=== PATIENT | female | born 1985 ===

== ENCOUNTER 2017-03-19 13:23 | Emergency (ER) | payer MEDICAID, OTHER ==
[2017-03-19 13:23] VITALS: BMI 28.1
[2017-03-19] MEDS ORDERED: Aspirin 325 mg EC Tablets PO STA (13:49)
[2017-03-19] MEDS ORDERED: Aspirin 325 mg EC Tablets PO ONE (14:16)
--- NOTE | 2017-03-19 14:18 | C.PDOC ---
History Of Present Illness 32 y/o female with past medical history of palpitations and "irregular heart rate" presents to ER with complaints of palpitations starting this morning that increase when taking deep breaths, took Tylenol 12.5 mg but no improvement. Patient states having discomfort on left chest reproducible with deep inspiration. Patient denies SOB, fever, chills, N/V/D. No other complaints at this time. Time Seen by Provider: 03/19/17 13:43 Chief Complaint (Nursing): Palpitations History Per: Patient History/Exam Limitations: no limitations Onset/Duration Of Symptoms: Hrs Severity: Mild Quality: Sharp Exacerbating Factors: None Past Medical History Reviewed: Historical Data, Nursing Documentation, Vital Signs Vital Signs: Last Vital Signs Temp 98.2 F 03/19/17 13:26 Pulse 66 03/19/17 13:26 Resp 18 03/19/17 13:26 BP 129/86 03/19/17 13:26 Pulse Ox 100 03/19/17 14:27 - Medical History PMH: Arthritis, Hyperthyroidism Surgical History: Tonsillectomy Family History: States: Unknown Family Hx - Social History Hx Tobacco Use: No Hx Alcohol Use: No Hx Substance Use: No - Immunization History Hx Tetanus Toxoid Vaccination: Yes Hx Influenza Vaccination: Yes Hx Pneumococcal Vaccination: No Review Of Systems Except As Marked, All Systems Reviewed And Found Negative. Constitutional: Negative for: Fever Cardiovascular: Positive for: Chest Pain (Left chest), Palpitations Respiratory: Negative for: Cough, Shortness of Breath Gastrointestinal: Negative for: Nausea, Vomiting, Diarrhea Skin: Negative for: Rash Psych: Negative for: Anxiety Physical Exam - Physical Exam Appears: Non-toxic, No Acute Distress Skin: Normal Color Head: Atraumatic, Normacephalic Oral Mucosa: Moist Neck: Normal ROM Chest: Symmetrical, No Tenderness, Other (Physician chaperoned by Dina (Nurse )) Respiratory: Normal Breath Sounds, No Rales, No Rhonchi, No Wheezing Extremity: Normal ROM Neurological/Psych: Oriented x3, Normal Speech, Normal Cognition ED Course And Treatment - Laboratory Results Result Diagrams: 03/19/17 14:31 03/19/17 14:31 Lab Interpretation: Normal (trop, bnp, d-dimer neg.) Urine POC: Negative ECG: Interpreted By Me ECG Interpretation: Normal Rate From EC O2 Sat by Pulse Oximetry: 100 (Room air) Pulse Ox Interpretation: Normal - Radiology CXR Interpretation: Yes: No Acute Disease Reevaluation Time: 15:58 Reassessment Condition: Improved (though with still mild discomfort L chest with deep insp) Medical Decision Making Medical Decision Making: musculoskeletal L chest discomfort Palps with h/o "abnormal rhythem" took Atenolol 12.5 PO this AM with no sig change to L chest discomfort. probably NOT new arrhythmia. Disposition Doctor Will See Patient In The: Office Counseled Patient/Family Regarding: Studies Performed, Diagnosis - Disposition Disposition: HOME/ ROUTINE Disposition Time: 15:59 Condition: GOOD - Clinical Impression Clinical Impression: Chest discomfort - PA / LIVE OUT NANNY / Resident Statement MD/DO has reviewed & agrees with the documentation as recorded. MD/DO has examined the patient and agrees with the treatment plan. - Scribe Statement The provider has reviewed the documentation as recorded by the Shanda Castillo All medical record entries made by the Shanda were at my direction and personally dictated by me. I have reviewed the chart and agree that the record accurately reflects my personal performance of the history, physical exam, medical decision making, and the department course for this patient. I have also personally directed, reviewed, and agree with the discharge instructions and disposition.
[2017-03-19 14:35] LABS: BASO % 0.5 % (0.0-2.0); EOS # 0.2 K/uL (0.0-0.7); EOS % 2.9 % (0.0-4.0); HEMATOCRIT 36.2 % (34.0-47.0); LYMPH # 1.7 K/uL (1.0-4.3); LYMPH % 25.5 % (20.0-40.0); MEAN CELL VOLUME 85.5 fL (81.0-99.0); MEAN CORPUSCULAR HEMOGLOBIN 28.3 pg (27.0-31.0); MEAN PLATELET VOLUME 7.7 fL (7.2-11.7); MONO # 0.5 K/uL (0.0-0.8); MONO % 8.1 % (0.0-10.0); RED CELL DISTRIBUTION WIDTH 14.4 % (11.5-14.5); WHITE BLOOD COUNT 6.8 K/uL (4.8-10.8)
[2017-03-19 14:58] LABS: CHLORIDE 99 mmol/L (98-107); SODIUM 137 mmol/L (132-148)
[2017-03-19 14:59] LABS: RBC URINE 4 /hpf (0-3); URINE BILIRUBIN NEGATIVE (NEGATIVE); URINE BLOOD NEGATIVE (NEGATIVE); URINE COLOR Yellow (YELLOW); URINE GLUCOSE (UA) NORMAL (Normal); URINE KETONE TRACE mg/dL (NEGATIVE); URINE LEUKOCYTE ESTERASE NEG Leu/uL (Negative); URINE PROTEIN NEGATIVE (NEGATIVE); URINE UROBILINOGEN NORMAL mg/dL (0.2-1.0); WBC URINE 1 /hpf (0-5)
[2017-03-19 15:01] LABS: ALB/GLOB RATIO 1.3 (1.0-2.1); ALKALINE PHOSPHATASE 79 U/L (38-126); ALT/SGPT 38 U/L (9-52); AST/SGOT 27 U/L (14-36); BLOOD UREA NITROGEN 13 mg/dL (7-17); CALCIUM 8.9 mg/dl (8.6-10.4); CARBON DIOXIDE 28 mmol/L (22-30); GFR AFRICAN-AMERICAN > 60; GLUCOSE,RANDOM 83 mg/dL (65-105); TOTAL PROTEIN 7.9 g/dL (6.3-8.3)
[2017-03-19 15:56] LABS: BILIRUBIN,TOTAL 0.5 mg/dL (0.2-1.3)
[2017-03-19 16:17] VITALS: BP 120/70; PULSE 56; RESP 18; TEMP 98; O2SAT 100
--- NOTE | 2017-03-19 17:22 | RAD ---
HISTORY: L chest discomfort COMPARISON: No prior. TECHNIQUE: Chest PA and lateral FINDINGS: LUNGS: No active pulmonary disease. PLEURA: No significant pleural effusion identified. No pneumothorax apparent. CARDIOVASCULAR: Normal. OSSEOUS STRUCTURES: No significant abnormalities. VISUALIZED UPPER ABDOMEN: Normal. OTHER FINDINGS: None. IMPRESSION: No active disease.
--- NOTE | 2017-03-24 15:06 | CARD ---
APPROVED REPORT EKG Measurement Heart [id number] <Conclusion> Normal sinus rhythm Normal ECG
== END 2017-03-19 16:25 | disposition home or self-care (01) ==
LOC: C.ER 13:23
DX: R07.9 Chest pain, unspecified (principal)

== ENCOUNTER 2018-12-11 12:39 | Outpatient (CLI) | payer MEDICAID | END 2018-12-11 12:40 | disposition home or self-care (01) | LOC: C.MAMMO 12:39 | DX: Z12.31 Encounter for screening mammogram for malignant neoplasm of breast (principal) ==

== ENCOUNTER 2018-12-20 12:36 | Outpatient (CLI) | payer MEDICAID | END 2018-12-20 12:37 | disposition home or self-care (01) | LOC: C.MAMMO 12:36 | DX: R92.8 Other abnormal and inconclusive findings on diagnostic imaging of breast (principal) ==

== ENCOUNTER 2019-01-31 19:18 | Emergency (ER) | payer MEDICAID ==
[2019-01-31] MEDS ORDERED: Sodium Chloride 0.9% 1,000 ML IV ONE ×2 (20:05→21:24)
[2019-01-31 20:08] LABS: SQUAMOUS EPITHIAL 14 /hpf (0-5); URINE BACTERIA MANY (<OCC); URINE BILIRUBIN NEGATIVE (NEGATIVE); URINE BLOOD 2+ (NEGATIVE); URINE CLARITY Hazy (Clear); URINE COLOR Amber (YELLOW); URINE GLUCOSE (UA) 2+ mg/dL (Normal); URINE LEUKOCYTE ESTERASE NEG Leu/uL (Negative); URINE PROTEIN 1+ mg/dL (NEGATIVE)
--- NOTE | 2019-01-31 20:19 | C.PDOC ---
History Of Present Illness 34 year old female with PMHx of anemia, reflux and DM presents to the ED c/o 1 day history of fever, dysuria, burning and itching with urination. Patient reports she has been taking Ibuprofen which breaks the fever for couple of hours and it returns, also taking Pyridium twice a day with no relief. Patient takes Metformin 500 mg twice a day for her diabetes. Patient reports she is sexually active with one male partner, last time she has intercourse was last week and it was with no protection .Patient denies nausea, vomit, diarrhea, rash, back pain, hematuria, vaginal discharge, vaginal bleeding. Time Seen by Provider: 01/31/19 19:47 Chief Complaint (Nursing): Female Genitourinary History Per: Patient History/Exam Limitations: no limitations Onset/Duration Of Symptoms: Days (1) Current Symptoms Are (Timing): Still Present Sick Contacts (Context): None Associated Symptoms: Fever Ear Symptoms: Bilateral: None Recent travel outside of the [place]: No Additional History Per: Patient Past Medical History Reviewed: Historical Data, Nursing Documentation, Vital Signs Vital Signs: Last Vital Signs Temp 103 F H 01/31/19 19:32 Pulse 126 H 01/31/19 19:32 Resp 18 01/31/19 19:32 BP 166/80 H 01/31/19 19:32 Pulse Ox 97 01/31/19 19:32 - Medical History PMH: Arthritis, Hyperthyroidism Surgical History: Tonsillectomy Family History: States: Unknown Family Hx - Social History Hx Tobacco Use: No Hx Alcohol Use: No Hx Substance Use: No - Immunization History Hx Tetanus Toxoid Vaccination: Yes Hx Influenza Vaccination: Yes Hx Pneumococcal Vaccination: No Review Of Systems Constitutional: Positive for: Fever. Negative for: Chills Cardiovascular: Negative for: Chest Pain Respiratory: Negative for: Shortness of Breath Gastrointestinal: Negative for: Nausea, Vomiting, Abdominal Pain Genitourinary: Positive for: Dysuria. Negative for: Vaginal Discharge, Vaginal Bleeding Musculoskeletal: Negative for: Back Pain Neurological: Negative for: Weakness, Numbness, Headache Physical Exam - Physical Exam Appears: Non-toxic, No Acute Distress, Other (Febrile) Skin: Normal Color, Warm, Dry Head: Atraumatic, Normacephalic Eye(s): bilateral: Normal Inspection Oral Mucosa: Moist Neck: Normal ROM, Supple Chest: Symmetrical Cardiovascular: Rhythm Regular (tachycardic) Respiratory: Normal Breath Sounds, No Rales, No Rhonchi, No Wheezing Gastrointestinal/Abdominal: Soft, Tenderness (suprapubic), No Guarding, No Rebound Back: No CVA Tenderness Extremity: Normal ROM, No Tenderness, No Swelling Neurological/Psych: Oriented x3, Normal Speech, Normal Cognition Gait: Steady ED Course And Treatment - Laboratory Results Result Diagrams: 01/31/19 20:29 01/31/19 20:29 Lab Results: Urine Color Michelle (YELLOW) 01/31/19 19:44 Urine Clarity Hazy (Clear) 01/31/19 19:44 Urine pH 7.0 (5.0-8.0) 01/31/19 19:44 Ur Specific [place] 1.018 (1.003-1.030) 01/31/19 19:44 Urine Protein 1+ mg/dL (NEGATIVE) H 01/31/19 19:44 Urine Glucose (UA) 2+ mg/dL (Normal) H 01/31/19 19:44 Urine Ketones Trace mg/dL (NEGATIVE) 01/31/19 19:44 Urine Blood 2+ (NEGATIVE) H 01/31/19 19:44 Urine Nitrate Positive (NEGATIVE) H 01/31/19 19:44 Urine Bilirubin Negative (NEGATIVE) 01/31/19 19:44 Urine Urobilinogen 4.0 mg/dL (0.2-1.0) H 01/31/19 19:44 Ur Leukocyte Esterase Neg Renetta/uL (Negative) 01/31/19 19:44 Urine WBC (Auto) 28 /hpf (0-5) H 01/31/19 19:44 Urine RBC (Auto) 61 /hpf (0-3) H 01/31/19 19:44 Ur Squamous Epith Cells 14 /hpf (0-5) H 01/31/19 19:44 Urine Bacteria Many (<OCC) H 01/31/19 19:44 O2 Sat by Pulse Oximetry: 97 (ON RA) Pulse Ox Interpretation: Normal Progress Note: Plan: - VBG. - Labs. - IV fluids. - Urine culture. - Blood culture. - UA Disposition Counseled Patient/Family Regarding: Studies Performed, Diagnosis, Need For Followup, Rx Given - Disposition Referrals: Rosi Nino MD [Medical Doctor] - Disposition: HOME/ ROUTINE Disposition Time: 23:00 Condition: STABLE Additional Instructions: FOLLOW UP WITH YOUR DOCTOR IN 1-2 DAYS DRINK PLENTY OF FLUIDS USE ANTIBIOTICS UNTIL FINISHED RETURN TO ER IF YOUR SYMPTOMS BECOME WORSE Prescriptions: Naproxen 375 mg PO BID PRN #20 tablet PRN Reason: pain Nitrofurantoin Macrocrystals [Macrobid] 1 cap PO BID #14 cap Instructions: Urinary Tract Infection, Adult (DC) Forms: [employer] (Citizen Of [place]) Print Language: ARMENIAN - POA Present On Arrival: None - Clinical Impression Clinical Impression: UTI (urinary tract infection) - Scribe Statement The provider has reviewed the documentation as recorded by the Scribe Kevon Ochoa All medical record entries made by the Scribe were at my direction and personally dictated by me. I have reviewed the chart and agree that the record accurately reflects my personal performance of the history, physical exam, medical decision making, and the department course for this patient. I have also personally directed, reviewed, and agree with the discharge instructions and disposition.
[2019-01-31 20:34] LABS: BASO % 0.2 % (0.0-2.0); EOS % 0.5 % (0.0-4.0); HEMOGLOBIN 13.3 g/dL (11.0-16.0); LYMPH # 0.7 K/uL (1.0-4.3); LYMPH % 10.4 % (20.0-40.0); MEAN CELL VOLUME 89.2 fL (81.0-99.0); MEAN CORPUSCULAR HEMOGLOBIN 29.8 pg (27.0-31.0); MEAN CORPUSCULAR HGB CONC 33.4 g/dL (33.0-37.0); MEAN PLATELET VOLUME 7.3 fL (7.2-11.7); MONO # 0.6 K/uL (0.0-0.8); MONO % 7.8 % (0.0-10.0); NEUT # 5.8 K/uL (1.8-7.0); NEUT % 81.1 % (50.0-75.0); RBC 4.47 Mil/uL (3.80-5.20); RED CELL DISTRIBUTION WIDTH 14.3 % (11.5-14.5); WHITE BLOOD COUNT 7.1 K/uL (4.8-10.8)
[2019-01-31 20:35] LABS: VENOUS BLOOD GAS BASE EXCESS 0.3 mmol/L (0.0-2.0); VENOUS BLOOD GAS PCO2 42 mmHg (40-60); VENOUS BLOOD GAS PO2 29 mm/Hg (30-55); VENOUS BLOOD PH 7.39 (7.32-7.43)
[2019-01-31 20:50] LABS: ALB/GLOB RATIO 1.3 (1.0-2.1); ALBUMIN 4.3 g/dL (3.5-5.0); ALT/SGPT 24 U/L (9-52); AST/SGOT 29 U/L (14-36); BLOOD UREA NITROGEN 6 mg/dL (7-17); GFR NON-AFRICAN AMERICAN > 60
[2019-01-31 22:51] VITALS: BP 100/58; PULSE 102; RESP 26; TEMP 99.1
[2019-01-31 23:00] VITALS: O2SAT 97
== END 2019-01-31 23:06 | disposition home or self-care (01) ==
LOC: C.ER 19:18
DX: N39.0 Urinary tract infection, site not specified (principal)
CPT/HCPCS: 80053; 81001; 82803; 84702; 85025; 87040; 87086; 87181; 96361; 96365; 96375; 99285; J0696; J1885; J7030